=== PATIENT | male | born 1950 | race Caucasian/White ===

== ENCOUNTER 2020-06-26 06:07 | Day surgery (SDC) | payer BC, MEDICARE ==
[2020-06-26] MEDS ORDERED: Lactated Ringers 1,000 ML IV SCH (06:30)
[2020-06-26] MEDS ORDERED: DIPRIVAN 200 MG/20 ML IV ONE ×2 (08:09→08:24)
[2020-06-26 09:02] VITALS: O2SAT 94
--- NOTE | 2020-06-26 09:11 | OP ---
SURGERY DATE/TIME: 06/26/2020 0808 PREOPERATIVE DIAGNOSIS: Screening colonoscopy. POSTOPERATIVE DIAGNOSES: 1) Transverse colon polyps. 2) Sigmoid diverticulosis. PROCEDURE: Colonoscopy. SURGEON: Craig Carney M.D. ANESTHESIA: MAC by Zbigniew Cantu CRNA. ESTIMATED BLOOD LOSS: Minimal. SPECIMENS: Hot forceps polypectomy from the transverse colon. DESCRIPTION OF PROCEDURE: After informed written consent was obtained, the patient was taken to the endoscopy suite. He was placed in the left lateral decubitus position and anesthesia was titrated to desired level of consciousness. A digital rectal exam showed normal sphincter tone. The scope was inserted into the rectum and sequentially the entire colonic mucosa was traversed. The level of cecum was reached and verified with direct visualization of ileocecal valve. Upon withdrawal there was a sessile polyp in the transverse colon which was grasped with forceps, cauterized and removed in its entirety and sent to pathology. The area was hemostatic following removal. Upon further withdrawal there was diffuse diverticulosis mostly concentrated in the sigmoid colon area. No bleeding or other abnormalities were encountered. Prior to withdrawal retroflexion was performed and showed no internal lesions. The scope was removed and the patient was transferred to the recovery room in good condition. He is to follow up in two weeks for pathology results.
[2020-06-26 09:25] VITALS: BP 124/75; PULSE 74
== END 2020-06-26 09:25 | disposition home or self-care (01) ==
LOC: SDC 06:07
PROVIDERS: ATTEND Family Medicine
DX: Z12.11 Encounter for screening for malignant neoplasm of colon (principal); D12.3 Benign neoplasm of transverse colon; I10 Essential (primary) hypertension; E11.9 Type 2 diabetes mellitus without complications; Z86.79 Personal history of other diseases of the circulatory system; K57.30 Diverticulosis of large intestine without perforation or abscess without bleeding
CPT/HCPCS: 82947; 88305; J2704

== ENCOUNTER 2023-10-21 05:57 | Day surgery (SDC) | payer MEDICARE ==
[2023-10-21] MEDS: Sodium Chloride 0.9% 1000 ML 1,000 ML IV SCH (06:10)
[2023-10-21] MEDS: CEFAZOLIN 2 GM/100 ML NaCl 2 GM/100 ML IVPB IV SCH (06:10)
[2023-10-21 06:40] LABS: ANION GAP 11.2 MEQ/L (5-15); Calcium 9.2 mg/dL (8.4-10.2); Creatinine 1 1.17 mg/dL (0.66-1.25); EST GLOMERULAR FILTRATION RATE 65.8 ML/MIN; Potassium 4.2 mmol/L (3.5-5.1)
[2023-10-21 06:59] LABS: Absolute Neutrophil Ct (ANC) 3.73 x10^3/uL (1.78-5.38); Basophil (Absolute #) 0.07 x10^3/uL (0.01-0.08); Eosinophil (Absolute #) 0.29 x10^3/uL (0.04-0.54); Hemoglobin 13.1 g/dL (13.7-17.5); IMMATURE GRAN # 0.02 x10^3u/L (0.001-0.031); IMMATURE GRAN % 0.3 % (0.001-0.429); Lymphocyte (Absolute #) 2.41 x10^3/uL (1.32-3.57); Lymphocytes % 33.5 % (21.8-53.1); Mean Cell Volume 88.8 fL (79.0-92.2); Mean Corpuscular Hemoglobin 29.8 pg (25.7-32.2); Mean Corpuscular Hgb Concent. 33.6 g/dL (32.3-36.5); Mean Platelet Volume 11.8 fL (9.4-12.4); Monocyte (Absolute #) 0.67 x10^3/uL (0.30-0.82); Monocytes % 9.3 % (5.3-12.2); Neutrophil % 51.9 % (34.0-67.9); Platelet Count 180 x10^3/uL (163-337); Red Blood Count 4.39 x10^6/uL (4.63-6.08); Red Cell Distribution Width 11.9 % (11.6-14.4); White Blood Count 7.2 x10^3/uL (4.23-9.07)
[2023-10-21] MEDS ORDERED: MARCAINE 0.25% PF/ EPI 1:200,000 ONE (07:11)
[2023-10-21] MEDS ORDERED: ROCURONIUM BROMIDE IV ONE (07:24)
[2023-10-21] MEDS ORDERED: Versed 2 MG/2 ML Injection ONE (07:25)
[2023-10-21] MEDS ORDERED: DIPRIVAN 200 MG/20 ML IV ONE (07:25)
[2023-10-21] MEDS ORDERED: SUBLIMAZE 100 MCG/2 ML ONE ×2 (07:25→09:41)
[2023-10-21] MEDS ORDERED: Marcaine 0.5%/Epinephrine 10 ML ONE (07:30)
[2023-10-21] MEDS ORDERED: Xylocaine-Mpf 2% 5 Ml Vial ONE (07:30)
[2023-10-21] MEDS ORDERED: PHENYLEPHRINE HCL ONE (08:31)
--- NOTE | 2023-10-21 08:34 | XRAY ---
Indication: Pneumonia. Comparison: November 02, 2016 Portable apical lordotic chest remains inflated and clear again with tiny left base calcified granulomas. Heart not enlarged. Bony thorax intact again with osteopenia and mild degenerative changes. Impression: Continued nonacute chest with chronic features.
[2023-10-21] MEDS ORDERED: Zofran 4 MG/2 ML VIAL ONE ×3 (08:46→10:13)
[2023-10-21] MEDS ORDERED: BRIDION 200MG/2ML IV ONE (09:13)
[2023-10-21] MEDS ORDERED: Lactated Ringers 1,000 ML IV ONE (09:21)
[2023-10-21] MEDS ORDERED: Hydromorphone 1 mg/ml Injection ONE (09:48)
[2023-10-21 10:43] VITALS: RESP 16
[2023-10-21 11:28] VITALS: BP 115/66; PULSE 56; TEMP 96.1; O2SAT 92
--- NOTE | 2023-10-22 11:48 | OP ---
SURGERY DATE/TIME: 10/21/2023 4266 - [id number] PREOPERATIVE DIAGNOSIS: Right olecranon bursitis. POSTOPERATIVE DIAGNOSIS: Right olecranon bursitis. PROCEDURE: Excision right olecranon bursa with excision of large traction spur olecranon. SURGEON: Yvan Lopez II, DO. ANESTHESIA: General with a block for postoperative pain control. DESCRIPTION OF PROCEDURE AND FINDINGS: The patient was identified and informed consent was obtained. The patient was then taken to the operative suite, placed in a supine position on the operating table where the general anesthetic was administered after the block had been placed by Anesthesia. Once an appropriate level of anesthesia had been obtained, tourniquet was placed high on the right upper extremity which was then prepped and draped in the usual sterile fashion. A standard time-out was taken. At this point, the arm was exsanguinated and the tourniquet was elevated to 250 mmHg. An incision was carried out transversely over the olecranon bursa. Skin was incised and dissection was meticulously carried out with some Davalos tenotomy scissors through the subcutaneous tissue. The patient's skin was very thin and the bursa was quite friable. The bursal sac was then gently shelled out with its bed in toto. Clear bursal fluid was noted. Once the bursa had been excised, the inside of the bursa was visualized with significant inflammatory tissue noted. At this point, the large traction spur was excised after shelling this out from the triceps and using osteotome to osteotomize the spur. It was then removed with a sharp resection and rongeur. The longitudinal split of the triceps was repaired with 0 Vicryl. Chromic was utilized to reapproximate the space after the tourniquet had been released and hemostasis obtained with electrocautery unit. At this point, Monocryl was used to repair the subcutaneous tissue and 4-0 nylon in a running suture was utilized for the skin. PRP had been obtained and it was then injected into the bursal space, a total of about 4 mL was utilized. Adaptic, 4 x 4's, and a sterile dressing applied. Patient was then transferred to the cart and taken to recovery room in satisfactory condition, having tolerated the procedure well.
== END 2023-10-21 11:50 | disposition home or self-care (01) ==
LOC: SDC 05:57
PROVIDERS: ATTEND Orthopaedic Surgery
DX: M70.21 Olecranon bursitis, right elbow (principal); Z79.01 Long term (current) use of anticoagulants; E10.9 Type 1 diabetes mellitus without complications
CPT/HCPCS: 24105; 36415; 64450; 71045; 76942; 80048; 82947; 83036; 85025; 93005; 99100; J0690; J1170; J2250; J2371; J2405; J2704; J3010